=== PATIENT | male | born 1990 | race Caucasian/White ===

== ENCOUNTER 2018-08-16 16:40 | Emergency (ER) | payer SELFPAY ==
[~2018-08-16] VITALS: Ht 172.7 cm; Wt 72.6 kg
--- OUTSIDE RECORDS SUMMARY | 2018-08-16 16:47 | XMS REPORT | Continuity of Care Document ---
Author Author [facility] Address Unknown Phone Unavailable Allergies Active Description Code Type Severity Reaction Onset Reported/Identified Relationship to Patient Clinical Status Yes Penicillins Drug Allergy 08/05/2012 Yes Penicillins Drug Allergy N/A N/A 08/05/2012 Medications There is no data. Problems Date Dx Coded Attending Type Code Diagnosis Diagnosed By 08/05/2012 MARIANO DAY APRN 300.02 AN GEN ANXIETY 08/05/2012 MARIANO DAY APRN 300.02 AN GEN ANXIETY Procedures Code [place] [address] PSYCH DIAG INTER EXAM 09/07/2012 51635 PSYCH IND W/MED CK 20 09/07/2012 Results There is no data. Encounters ACCT No. Visit Date/Time Discharge Status Pt. Type Provider Facility Loc./Unit Complaint [id number] 04/24/2013 10:50:00 04/24/2013 23:59:59 CLS Outpatient MARIANO DAY APRN [id number] 09/07/2012 15:50:00 09/07/2012 23:59:59 CLS Outpatient MARIANO DAY APRN [id number] 05/04/2013 11:15:00 05/04/2013 23:59:59 CLS Outpatient
--- OUTSIDE RECORDS SUMMARY | 2018-08-16 16:47 | XMS REPORT ---
Author Author DULCE TIM Organization [facility] Address [address] [place] [address] Care Team Providers Care Manager Salt Name Role Phone DULCE TIM Unavailable PROBLEMS Type Condition ICD9-CM Code VHV78-PI Code Onset Dates Condition Status SNOMED Code Problem Generalized anxiety disorder 300.02 Active [id number] ALLERGIES Substance Reaction Event Type Date Status Penicillins Unknown Non Drug Allergy May, Active ENCOUNTERS Encounter Location Date Diagnosis [facility] [id number] [place] [phone] May, STD exposure Z20.2 ; Screen for STD (sexually transmitted disease) Z11.3 and Penile discharge R36.9 [facility] [id number] [place] [address] Dec, [facility] [id number] [place] [address] Dec, [facility] [id number] [place] [address] Jul, [facility] [address] [address] Jul, [facility] [id number] [place] [address] Jul, [facility] [id number] [place] [address] Jul, [facility] [id number] [place] [address] Jul, [facility] [address] [address] Jul, [facility] [address] [address] [address] May, [facility] [id number] [address] May, [facility] [address] [address] May, [facility] [id number] [address] Apr, [facility] [address] [address] Dec, [facility] [address] [address] Oct, [facility] [address] [address] Oct, [facility] [address] [address] Sep, [facility] [address] [address] Sep, [facility] [address] [address] Aug, [facility] [address] [address] Aug, [facility] [id number] [address] Jul, [facility] [address] [id number] [address] Jul, [facility] [id number] [address] Mar, IMMUNIZATIONS No Known Immunizations SOCIAL HISTORY Never Assessed REASON FOR VISIT STD check-[place]wooden,RMA PLAN OF CARE Activity Details Follow Up prn Reason: VITAL SIGNS Height 66.5 in 2018-06-02 Weight 158.7 lbs 2018-06-02 Temperature 96.8 degrees Fahrenheit 2018-06-02 Heart Rate 107 bpm 2018-06-02 Respiratory Rate 18 2018-06-02 Oximetry on room air:98 % 2018-06-02 BMI 25.23 kg/m2 2018-06-02 Blood pressure systolic 130 mmHg 2018-06-02 Blood pressure diastolic 92 mmHg 2018-06-02 MEDICATIONS Medication Instructions Dosage Frequency Start Date End Date Duration Status Cefixime 400 mg Orally Once a day 1 capsule 24h May, May, 1 dose Active RESULTS Name Result Date Reference Range GC/CHLAM URINE (STATE) 2018-06-02 CHLAMYDIA neg GC pos PROCEDURES Procedure Date Ordered Result Body Site No Charge Jun 02, 2018 INSTRUCTIONS MEDICATIONS ADMINISTERED No Known Medications MEDICAL (GENERAL) HISTORY Type Description Date Surgical History No Surgical history information
[2018-08-16] MEDS ORDERED: AZITHROMYCIN 250 MG TAB (ZITHROMAX) PO ONE (17:15)
[2018-08-16 17:17] LABS: BILIRUBIN,URINE NEGATIVE (NEGATIVE); CLARITY,URINE SLIGHTLY CLOUDY; COLOR,URINE YELLOW; GLUCOSE, URINE (UA) NEGATIVE (NEGATIVE); KETONES,URINE NEGATIVE (NEGATIVE); LEUKOCYTE ESTERASE ,URINE 3+ (NEGATIVE); NITRITE,URINE NEGATIVE (NEGATIVE); PH,URINE 7 (5-9); PROTEIN,URINE NEGATIVE (NEGATIVE); UROBILINOGEN,URINE NORMAL (NORMAL)
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
[2018-08-16 17:30] LABS: WBC,URINE >100 /HPF
[2018-08-16 17:31] LABS: BACTERIA,URINE MODERATE /HPF
[2018-08-16 17:33] VITALS: BP 155/85
== END 2018-08-16 17:33 | disposition home or self-care (01) ==
LOC: EDUNIT# 16:40 → ER 16:44
DX: R36.9 Urethral discharge, unspecified (principal); Z20.2 Contact with and (suspected) exposure to infections with a predominantly sexual mode of transmission; Z88.0 Allergy status to penicillin; Z86.14 Personal history of Methicillin resistant Staphylococcus aureus infection
CPT/HCPCS: 36415; 81000; 87077; 87088; 87185; 87491; 87591; 99283